=== PATIENT | female | born 1995 | race African-American/Black ===

== ENCOUNTER 2022-02-05 10:05 | Emergency (ER) | payer OTHER ==
[~2022-02-05] VITALS: Ht 160 cm; Wt 53.0 kg
[2022-02-05] MEDS ORDERED: ONDANSETRON HCL 4MG/2ML INJ IV STA (10:31)
[2022-02-05] MEDS ORDERED: MORPHINE SULFATE 4 MG/ML CPJ (NOT FOR IM USE) IV STA (10:31)
[2022-02-05] MEDS ORDERED: SODIUM CHLORIDE 0.9% 1,000 ML IV ONE (10:45)
[2022-02-05 13:01] LABS: CLARITY URINE CLEAR (CLEAR); COLOR URINE YELLOW (YELLOW); KETONES URINE NEGATIVE (NEGATIVE); LEUKOCYTE ESTERASE URINE TRACE (NEGATIVE); NITRITE URINE NEGATIVE (NEGATIVE); OCCULT BLOOD URINE TRACE (NEGATIVE); PH URINE >=9.0 (4.5-8.0); PROTEIN URINE 1+ (NEGATIVE); SPECIFIC GRAVITY URINE 1.023 (1.005-1.030)
[2022-02-05 13:06] LABS: CHLORIDE 110 mEq/L (98-107)
[2022-02-05 13:12] LABS: BASOPHILS % 0.4 % (0.0-2.0); EOSINOPHILS % 0.1 % (0.0-5.0); HEMATOCRIT. 39.7 % (36.0-48.0); HEMOGLOBIN. 13.1 g/dL (12.0-16.0); LYMPHOCYTES % 15.2 % (20.0-50.0); MEAN CORPUSCULAR VOLUME 90.9 fL (81.0-99.0); MEAN PLATELET VOLUME 7.9 fl (7.4-10.4); MONOCYTES % 5.9 % (2.0-8.0); NEUTROPHILS % 78.4 % (40.0-76.0); PLATELET 352 x1000/uL (130-400); RED BLOOD CELL COUNT 4.36 mill/uL (4.2-5.4); RED CELL DISTRIBUTION WIDTH 12.6 % (11.6-14.6)
[2022-02-05] MEDS ORDERED: KETOROLAC 30MG/ML VIAL IV STA (13:35)
[2022-02-05 13:49] LABS: HCG SCREEN NEGATIVE
[2022-02-05] MEDS ORDERED: MORPHINE SULFATE 4 MG/ML CPJ (NOT FOR IM USE) IV NR (14:15)
[2022-02-05] MEDS ORDERED: KETOROLAC 30MG/ML VIAL IV NR (14:15)
[2022-02-05] MEDS ORDERED: ONDANSETRON HCL 4MG/2ML INJ IV NR (14:15)
[2022-02-05 14:23] VITALS: BP 112/82
[2022-02-05] MEDS ORDERED: IOHEXOL-300 100 ML BOTTLE ONE (15:50)
[2022-02-05] MEDS ORDERED: OMEP20CA14 MT (16:04)
[2022-02-05] MEDS ORDERED: NITR-87 MT (16:04)
[2022-02-05] MEDS ORDERED: ONDA4TAB11 PO (16:04)
== END 2022-02-05 16:34 | disposition home or self-care (01) ==
LOC: ER 10:05
DX: N39.0 Urinary tract infection, site not specified (principal); Z82.49 Family history of ischemic heart disease and other diseases of the circulatory system
CPT/HCPCS: 36415; 74177; 80053; 81003; 81025; 83690; 84703; 85025; 96374; 96375; 99285; J1885; J2405; J7030; Q9967